=== PATIENT | female | born 1985 | race Caucasian/White ===

== ENCOUNTER 2018-06-23 07:44 | Emergency (ER) | payer OTHER ==
[~2018-06-23] VITALS: Ht 165.1 cm; Wt 70.0 kg
[2018-06-23 10:10] VITALS: BP 105/64
== END 2018-06-23 10:12 | disposition home or self-care (01) ==
LOC: ER 07:44
DX: Z00.00 Encounter for general adult medical examination without abnormal findings (principal)
CPT/HCPCS: 99283